=== PATIENT | female | born 1945 | race Caucasian/White ===

== ENCOUNTER → 2016-08-06 | Outpatient (CLI) | payer MEDICARE ==
[2016-08-06 13:14] LABS: AUTOMATED NEUTROPHIL # 2.5 TH/MM3 (1.8-7.7); BASOPHIL % 0.6 % (0.0-2.0); EOSINOPHIL % 0.9 % (0.0-4.0); HEMATOCRIT 41.2 % (35.0-46.0); HEMO FLAGS DIFF FINAL; LYMPH % 15.6 % (9.0-44.0); LYMPHOCYTE # 0.6 TH/MM3 (1.0-4.8); MEAN CORPUSCULAR HEMOGLOBIN 30.8 PG (27.0-34.0); MEAN CORPUSCULAR HGB CONC 33.1 % (32.0-36.0); MONO % 15.2 % (0.0-8.0); NEUT % 67.7 % (16.0-70.0); PLATELET COUNT 128 TH/MM3 (150-450); RED BLOOD COUNT 4.43 MIL/MM3 (4.00-5.30); RED CELL DISTRIBUTION WIDTH 13.4 % (11.6-17.2); WHITE BLOOD COUNT 3.7 TH/MM3 (4.0-11.0)
[2016-08-06 13:34] LABS: ANION GAP 8 MEQ/L (5-15); AST (GOT) 34 U/L (15-37); BICARBONATE 29.5 MEQ/L (21.0-32.0); BLOOD UREA NITROGEN 12 MG/DL (7-18); CHLORIDE 101 MEQ/L (98-107); GLOMERULAR FILTRATION RATE 72 ML/MIN (>89); GLUCOSE,FASTING 81 MG/DL (74-99); POTASSIUM 3.7 MEQ/L (3.5-5.1); SODIUM (NA) 138 MEQ/L (136-145)
[2016-08-06 13:35] LABS: ALT (GPT) 50 U/L (10-53)
[2016-08-06 13:37] LABS: ALKALINE PHOSPHATASE 98 U/L (45-117); HDL CHOLESTEROL 63.3 MG/DL (40.0-60.0); LDL CHOLESTEROL 120 MG/DL (0-99); TOTAL BILIRUBIN ADULT 0.3 MG/DL (0.2-1.0)
== END ==
LOC: PLAB 08:07
PROVIDERS: ATTEND Family Medicine
DX: E78.2 Mixed hyperlipidemia (principal); I10 Essential (primary) hypertension
CPT/HCPCS: 36415; 80053; 80061; 85025

== ENCOUNTER 2017-01-02 12:06 | Emergency (ER) | payer MEDICARE ==
[~2017-01-02] VITALS: Ht 160 cm; Wt 57.7 kg
[2017-01-02 12:08] VITALS: BP 138/90; PULSE 58; RESP 20; TEMP 97.8; O2SAT 97
[2017-01-02] MEDS ORDERED: VERA40TA PO (12:25)
--- NOTE | 2017-01-02 13:40 | RADRPT ---
EXAM DATE/TIME: 01/02/2017 13:18 [place] COMPARISON: No previous studies available for comparison. INDICATIONS : Lifting and twisting and felt pain in low back MEDICAL HISTORY : None. SURGICAL HISTORY : None. ENCOUNTER: Initial ACUITY: 4 - 6 days PAIN SCORE: 7/10 LOCATION: Bilateral low back FINDINGS: There are five non-rib bearing vertebral bodies. The vertebral bodies are in normal alignment withou t evidence of subluxation or scoliosis. Mild joint space narrowing at L4-5 and L5-S1 with endplate sc lerosis throughout the lumbar spine. Osteophyte formation at L3-S1. The oblique views are limited due to large amount stool in the colon. There is bilateral bony neural foraminal narrowing at L4-5 and L 5-S1.. The posterior elements are intact without evidence of spondylolysis. The pedicles are intact . Bony mineralization is normal for age. No fracture is identified. CONCLUSION: 1. No acute fracture or subluxation. 2. Degenerative spondylosis of the lumbar spine most prominently at L4-S1 with bilateral bony neural foraminal stenosis. Mansoor Leon MD on January 02, 2017 at 13:34 Board Certified Radiologist. This report was verified electronically.
[2017-01-02] MEDS ORDERED: ROBA500T PO (13:57)
[2017-01-02] MEDS ORDERED: IBUP1TAB7 PO (13:57)
--- NOTE | 2017-01-02 13:58 | PD ---
HPI Chief Complaint: Musculoskeletal Complaint Time Seen by Provider: 12:46 Travel History International Travel<30 days: No Contact w/Intl Traveler<30days: No Traveled to known affect area: No History of Present Illness HPI 71 year old female here with right low back pain radiating into r leg. Denies injury. Denies fever, chills, chest pain, shortness of breath, abdominal pain, incontinence, paresthesia or weakness, or urinary symptoms. Symptom severity is moderate. No alleviating factors. PFSH Social History Tobacco Use: No Allergies-Medications (Allergen,Severity, Reaction): Coded Allergies: acetaminophen (Verified Allergy, Severe, Nausea/Vomiting, 01/02/17) hydrocodone (Verified Allergy, Severe, Nausea/Vomiting, 01/02/17) codeine (Verified Allergy, Unknown, NAUSEA, 01/02/17) Reported Meds & Prescriptions Reported Meds & Active Scripts Active Robaxin (Methocarbamol) 500 Mg Tab 500 Mg PO TID 4 Days Ibuprofen 800 Mg Tab 800 Mg PO Q6HR PRN Reported Verapamil (Verapamil HCl) 40 Mg Tab 40 Mg PO Q8H PRN Review of Systems Except as stated in HPI: all other systems reviewed are Neg General / Constitutional: No: Fever Physical Exam Narrative GENERAL: Alert, well-appearing female in no acute distress. She appears mildly uncomfortable with movement. SKIN: Warm and dry. HEAD: Atraumatic. Normocephalic. EYES: Pupils equal and round. No scleral icterus. No injection or drainage. ENT: No nasal bleeding or discharge. Mucous membranes pink and moist. NECK: Trachea midline. No JVD. CARDIOVASCULAR: Regular rate and rhythm. RESPIRATORY: No accessory muscle use. Clear to auscultation. Breath sounds equal bilaterally. GASTROINTESTINAL: Abdomen soft, non-tender, nondistended. Hepatic and splenic margins not palpable. MUSCULOSKELETAL: Extremities without clubbing, cyanosis, or edema. No obvious deformities. BACK: No CVA tenderness. No rash. No point tenderness on palpation of the spine. He left low lumbar region and SI joint. NEUROLOGICAL: Awake and alert. No obvious cranial nerve deficits. Motor grossly within normal limits. Five out of 5 muscle strength in the arms and legs. Normal speech. PSYCHIATRIC: Appropriate mood and affect; insight and judgment normal. Data Data Last Documented VS Vital Signs Date Time Temp Pulse Resp B/P (MAP) Pulse Ox O2 Delivery O2 Flow Rate FiO2 01/02/17 12:08 97.8 58 20 138/90 (106) 97 Orders Orders Spine, Lumbar Comp W/Obliq (01/02/17 ) MDM Medical Decision Making Medical Screen Exam Complete: Yes Emergency Medical Condition: Yes Differential Diagnosis SCIATICA, LUMBAR STRAIN, LUMBAR FX Narrative Course 71 year old female here with right low back pain radiating into r leg. Denies injury. Denies fever, chills, incontinence, paresthesia or weakness, or urinary symptoms. xray of lumbar spine negative for fx. Diagnosis Primary Impression: Sciatica Qualified Codes: M54.31 - Sciatica, right side Referrals: Primary Care Physician Additional Instructions: take the medication as prescribed. follow up with your primary doctor. return to the ED if you develop new or worsening symptoms. Scripts Methocarbamol (Robaxin) 500 Mg Tab 500 MG PO TID for Muscle Spasm for 4 Days, TAB 0 Refills Prov: Ariane Chery 01/02/17 Ibuprofen (Ibuprofen) 800 Mg Tab 800 MG PO Q6HR Y for PAIN, #30 TAB 0 Refills Prov: Ariane Chery 01/02/17 Disposition: 01 DISCHARGE HOME Condition: Stable Ariane Chery Jan 02, 2017 13:58
== END 2017-01-02 14:07 | disposition home or self-care (01) ==
LOC: PHEFT 12:06
DX: M54.41 Lumbago with sciatica, right side (principal)
CPT/HCPCS: 72110; 99283